=== PATIENT | male | born 1970 | race Caucasian/White ===

== ENCOUNTER 2020-03-19 08:52 | Emergency (ER) | payer BC ==
[2020-03-19 09:59] VITALS: BP 118/77
--- NOTE | 2020-03-19 10:55 | ER Document Report ---
ED Hand/Wrist Injury - General Chief Complaint: Finger Injury Stated Complaint: FINGER PAIN Time Seen by Provider: 03/19/20 10:05 Primary Care Provider: MAGO GREENFIELD PA-C [Primary Care Provider] - Follow up as needed Mode of Arrival: Ambulatory Information source: Patient Notes: 49-year-old male presents to the emergency department with a complaint of injury to the left hand. Apparently was working and picking up an item when he felt a pull in his hand. Since then he has developed significant pain in the distal palm of the left hand. He also notes that the fourth finger/ring finger has been locking over the past couple of days. He has used Aleve and applied cold packs to the area without any significant improvement. Past Medical History - Social History Smoking Status: Unknown if Ever Smoked Family History: Reviewed & Not Pertinent Physical Exam - Vital signs Vitals: Temp Pulse Resp BP Pulse Ox 98.7 F 80 16 118/77 100 03/19/20 08:58 03/19/20 08:58 03/19/20 08:58 03/19/20 08:58 03/19/20 08:58 Course - Vital Signs Vital signs: Temp Pulse Resp BP Pulse Ox 98.7 F 80 16 118/77 100 03/19/20 08:58 03/19/20 08:58 03/19/20 08:58 03/19/20 08:58 03/19/20 08:58 Discharge - Discharge Clinical Impression: Left hand tendonitis Sprain of left hand Qualifiers: Encounter type: initial encounter Qualified Code(s): S63.92XA - Sprain of u nspecified part of left wrist and hand, initial encounter Condition: Good Disposition: HOME, SELF-CARE Instructions: Tendonitis (OM) Additional Instructions: You were seen in the emergency room today with a injury to your left hand and secondary tendinitis. Please apply cold pack to the area of pain, take the medication Naprosyn as prescribed. Follow-up with your primary care doctor if your symptoms are not resolving in the next 72 hours. HOME CARE INSTRUCTIONS & INFORMATION: Thank you for choosing us for your medical needs. We hope you're satisfied with the care you received. After you leave, you must properly care for your problem and, at the same time, observe its progress. Any condition can change. Some illnesses can change rapidly over hours or days. If your condition worsens, return to the Emergency Department or see your physician promptly. ABOUT YOUR X-RAYS AND EKG'S: If you had an EKG or X-rays taken, they have been read by the Emergency Physician. The X-rays and EKG's will also be read by a Radiologist or Fashion Consultant within 24 hours. If discrepancies are noted, you will be notified by telephone. Please be certain the ED has a correct telephone number & address where you can be reached. Also, realize that some fractures or abnormalities do not show up on initial X-rays. If your symptoms continue, see your physician. ABOUT YOUR LABORATORY TEST: If you had laboratory tests, the results have been reviewed by the Emergency Physician. Some test results (for example cultures) may not be available for several days. You will be contacted if any test result shows you need additional treatment. Please be certain the ED has a correct telephone number and address where you can be reached. ABOUT YOUR MEDICATIONS: You will receive instructions on how to take your medicine on the prescription label you receive. Additional information may be provided by the Pharmacy. If you have questions afterwards, call the ED for clarification or further instructions. Some prescribed medications may cause drowsiness. Do not perform tasks such as driving a car or operating machinery without consulting your Pharmacist. If you feel you need a refill of pain medication, your condition will need re-evaluation. Please do not call for a refill of any medication. ABOUT YOUR SIGNATURE: Signature of this document acknowledges to followin. Understanding that you received emergency treatment and that you may be released before al medical problems are known or treated. Please be certain the ED has a correct phone number & address where you can be reached. 2. Acknowledgement that you will arrange for follow-up care as recommended. 3. Authorization for the Emergency Physician to provide information to your follow-up Physician in order to maximize your care. AT ANY TIME, IF YOUR SYMPTOMS CHANGE SIGNIFICANTLY OR WORSEN OR YOU DEVELOP NEW SYMPTOMS, RETURN TO THE EMERGENCY DEPARTMENT IMMEDIATELY FOR RE-EVALUATION. OUR GOAL IS TO PROVIDE EXCELLENT MEDICAL CARE! WE HOPE THAT WE HAVE MET YOUR EXPECTATIONS DURING YOUR EMERGENCY DEPARTMENT VISIT AND THAT YOU FEEL YOU HAVE RECEIVED EXCELLENT CARE! Prescriptions: Naproxen [Naprosyn] 500 mg PO BID #20 tablet Referrals: MAGO GREENFIELD PA-C [Primary Care Provider] - Follow up as needed
--- NOTE | 2020-03-19 11:46 | RADIOLOGY REPORT (SQ) ---
EXAM DESCRIPTION: HAND LEFT 3 VIEWS IMAGES COMPLETED DATE/TIME: 03/19/2020 11:26 am REASON FOR STUDY: Injury 1 week COMPARISON: None. EXAM PARAMETERS: NUMBER OF VIEWS: Three views. TECHNIQUE: AP, lateral and oblique radiographic images acquired of the left hand. LIMITATIONS: None. FINDINGS: MINERALIZATION: Normal. BONES: Well corticated bone fragment dorsal to the 3rd DIP consistent with remote trauma or anatomic variant. No acute fracture. JOINTS: No effusions. SOFT TISSUES: No soft tissue swelling. No foreign body. OTHER: No other significant finding. IMPRESSION: No acute findings. TECHNICAL DOCUMENTATION: JOB ID: [id number] 2010 [employer]- All Rights Reserved Reading location - IP/workstation name: [email or web address]
== END 2020-03-19 12:38 | disposition home or self-care (01) ==
LOC: ER 08:52
DX: S63.92XA Sprain of unspecified part of left wrist and hand, initial encounter (principal); M77.9 Enthesopathy, unspecified; M79.644 Pain in right finger(s); X58.XXXA Exposure to other specified factors, initial encounter
CPT/HCPCS: 99283

== ENCOUNTER 2020-06-07 07:51 | Day surgery (SDC) | payer OTHER, BC ==
[2020-06-02 10:42] LABS: APPEARANCE,URINE CLEAR; BILIRUBIN,URINE NEGATIVE (NEGATIVE); COLOR,URINE YELLOW; GLUCOSE, URINE NEGATIVE (NEGATIVE); KETONES,URINE NEGATIVE (NEGATIVE); LEUKOCYTE ESTERASE,URINE NEGATIVE (NEGATIVE); NITRITE,URINE NEGATIVE (NEGATIVE); PROTEIN,URINE NEGATIVE (NEGATIVE); URINE SPECIFIC GRAVITY 1.011; UROBILINOGEN,URINE NEGATIVE mg/dL (<2.0)
[2020-06-02 10:47] LABS: HEMATOCRIT 46.9 % (37.9-51.0); HEMOGLOBIN 16.2 g/dL (13.5-17.0); MEAN CORPUSCULAR HEMOGLOBIN 32.1 pg (27.0-33.4); MEAN CORPUSCULAR HGB CONC 34.6 g/dL (32.0-36.0); MEAN CORPUSCULAR VOLUME 93 fl (80-97); PLATELET COUNT 351 10^3/uL (150-450); RED BLOOD COUNT 5.05 10^6/uL (4.35-5.55); WHITE BLOOD COUNT 8.7 10^3/uL (4.0-10.5)
[2020-06-02 11:16] LABS: ANION GAP 9 (5-19); BLOOD UREA NITROGEN 13 mg/dL (7-20); CARBON DIOXIDE 29 mmol/L (22-30); CHLORIDE 101 mmol/L (98-107); GLUCOSE 117 mg/dL (75-110); POTASSIUM 4.6 mmol/L (3.6-5.0)
[~2020-06-07 07:51] MED LIST: CEFAZOLIN 2 GM/D5W RTU 2 GM/50 ML RTUPB IV PRN; FENTANYL CITRATE INJ/PF 100 MCG/2 ML AMPUL ONE; LACTATED RINGERS 1000 ML IV PRN; LIDOCAINE 0.5% INJ-PF (5 MG/ML) 50 ML SDV SUBCUT PRN; MIDAZOLAM 2 MG/2 ML INJ ONE; ONDANSETRON HCL INJ/PF 4 MG/2 ML SDV ONE; PROPOFOL INJ 200 MG/20 ML VIAL IV ONE
[2020-06-07] MEDS ORDERED: CEFAZOLIN 2 GM/D5W RTU 2 GM/50 ML RTUPB IV ONE (08:58)
[2020-06-07] MEDS ORDERED: MIDAZOLAM 2 MG/2 ML INJ ONE (11:17)
[2020-06-07] MEDS ORDERED: FENTANYL CITRATE INJ/PF 100 MCG/2 ML AMPUL ONE (11:17)
[2020-06-07] MEDS ORDERED: LIDOCAINE 1% INJ-PF (10 MG/ML) 30 ML SDV ONE (11:17)
[2020-06-07] MEDS ORDERED: LIDOCAINE 2% INJ-PF (20 MG/ML) 10 ML AMPUL ONE (11:17)
[2020-06-07] MEDS ORDERED: ONDANSETRON HCL INJ/PF 4 MG/2 ML SDV ONE (11:17)
[2020-06-07] MEDS ORDERED: PROPOFOL INJ 200 MG/20 ML VIAL IV ONE (11:18)
[2020-06-07] MEDS ORDERED: MORPHINE SULFATE 10 MG/ML INJ IV PRN ×2 (12:03→12:13)
[2020-06-07] MEDS ORDERED: FENTANYL CITRATE INJ/PF 100 MCG/2 ML AMPUL IV PRN ×3 (12:03)
[2020-06-07] MEDS ORDERED: PROMETHAZINE HCL INJ 25 MG/1 ML VIAL IV PRN ×2 (12:03)
[2020-06-07] MEDS ORDERED: DIPHENHYDRAMINE HCL 50 MG/ML VIAL IV PRN (12:03)
[2020-06-07] MEDS ORDERED: MEPERIDINE HCL/PF INJ 25 MG/1 ML DISP.SYRIN IV PRN (12:03)
[2020-06-07] MEDS ORDERED: OXYCODONE-ACETAMINOPHEN 5-325 MG TABLET PO PRN ×3 (12:03→12:13)
--- NOTE | 2020-06-07 12:13 | Operative Report ---
Operative Report DATE OF SURGERY: 06/07/20 PREOPERATIVE DIAGNOSIS: Left middle trigger finger POSTOPERATIVE DIAGNOSIS: Same OPERATION: Left middle trigger finger release SURGEON: JENNIFER PUTNAM ANESTHESIA: LMAC COMPLICATIONS: None ESTIMATED BLOOD LOSS: Minimal PROCEDURE: Indication for above procedure: 50-year-old male with catching and locking of his left middle finger. Attempted conservative measures including injections without resolution of patient's symptoms at that point decision was made to proceed with operative intervention. Procedure In Detail: Patient was seen and evaluated in the preoperative holding area. The LEFT upper extremity was initialized and marked. Patient received 2g of Ancef IV for bacterial prophylaxis. Patient was taken back to the operative room where transferred to the operative table. Once they were adequately anesthetized a nonsterile tourniquet was placed on the upper extremity. A surgical team debriefing was performed ensuring all instrumentation was available, the surgical procedure was discussed with possible concerns reviewed. A digital block was performed utilizing 10 mL of 1% lidocaine without epinephrine. The upper extremity was prepped with chlorhexidine and alcohol and draped in a sterile fashion. A timeout was done identifying correct patient, procedure and extremity everyone in attendance agree with this and verbalized no concerns. The extremity was exsanguinated the tourniquet was inflated to 250 mmHg. Longitudinal skin incision was made centered over the A1 david of the middle finger. The radial and ulnar neurovascular bundles were identified and retracted from the wound. The A1 david was identified and incised. The A1 david was released to the level of the A2 david but not through the A2 david. The palmar aponeurotic david was released proximal to the A1 david. Patient was then awoken from MAC anesthesia and made a full fresh meat grader there is no evidence of residual triggering or locking. The wound was then copiously irrigated with normal saline. Skin was closed with interrupted 4-0 nylon suture. Wound was dressed with Xeroform and a soft dressing. Sponge counts, instrument counts, needle counts counts were correct. Patient was then awoken from anesthesia. Transferred from the operating room table to the operating room stretcher. There was no intraoperative complications patient tolerated procedure well stable to PACU. Postoperative plan: Patient will follow-up as scheduled for wound check. They will call with any questions or concerns.
--- NOTE | 2020-06-07 12:13 | Discharge Summary ---
Discharge Summary (SDC) - Discharge Final Diagnosis: Left middle trigger finger Date of Surgery: 06/07/20 Discharge Date: 06/07/20 Condition: Good Treatment or Instructions: Schedule Follow Up w/ Dr. Zeke Trevizo @ [facility] for Surgery to be seen in 10-14 days or as scheduled [place]: [place]: [place]: May remove dressing on postop day #3, keep incision covered and dry. Ice and elevate May begin finger range of motion attempting to make full fist. Stool softener of choice when on pain medication. USE OF [id number] IBUPROFEN: Ibuprofen (Advil, Nuprin, Medipren, Motrin IB) is a medication for fever and pain control. In addition, it has anti- inflammatory effects which may be beneficial, especially in the treatment of injuries. It's best to take ibuprofen with food. Persons with ulcer disease or allergy to aspirin should notify their physician of this before taking ibuprofen. Ibuprofen can be given every four to six hours, for a total of four doses daily. Age Pain or fever dose Antiinflammatory dose 6-8 yr 200 mg (1 tab) 200 mg (1 tab) 9-11 yr 200 mg (1 tab) 200-400 mg (1-2 tab) 11-14 yr 200-400 mg (1-2 tab) 400 mg (2 tab) 15-adult 400 mg (2 tab) 600 mg (3 tab) ORAL NARCOTIC MEDICATION: You have been given a prescription for pain control. This medication is a narcotic. It's best taken with food, as nausea can result if taken on an empty stomach. Don't operate machinery or drive within six hours of taking this medication. Do not combine this medicine with alcohol, or with any medication which can cause sedation (such as cold tablets or sleeping pills) unless you get permission from the physician. Narcotics tend to cause constipation. If possible, drink plenty of fluids and eat a diet high in fiber and fruits. Please be aware that prescription narcotics also have the potential for abuse. People become addicted to these medications because of the general sense of wellbeing that they induce. This feeling along with a significant reduction in tension, anxiety, and aggression provides a stimulating seductive quality to these drugs. Once your pain is under control, we encourage you to discard your unused narcotics. Prescriptions: Hydrocodone/Acetaminophen [[place] 5-325 mg Tablet] 1 tab PO Q6 PRN #12 tablet PRN Reason: Referrals: MAGO GREENFIELD PA-C [Primary Care Provider] - Discharge Diet: As Tolerated Respiratory Treatments at Home: Deep Breathing/Coughing Discharge Activity: No Lifting Over 10 Pounds, No Lifting/Push/Pulling Report the Following to Your Physician Immediately: Fever over 101 Degrees, Unusual Bleeding, Redness, Swelling, Warmth, Increased Soreness
[2020-06-07 13:53] VITALS: BP 118/79
== END 2020-06-07 13:10 | disposition home or self-care (01) ==
LOC: OROUT 07:51
PROVIDERS: ATTEND Orthopaedic Surgery
DX: M65.332 Trigger finger, left middle finger (principal); I10 Essential (primary) hypertension; E11.9 Type 2 diabetes mellitus without complications; E78.5 Hyperlipidemia, unspecified; F17.210 Nicotine dependence, cigarettes, uncomplicated; Z03.818 Encounter for observation for suspected exposure to other biological agents ruled out; Z79.84 Long term (current) use of oral hypoglycemic drugs; Z79.899 Other long term (current) drug therapy; Z85.07 Personal history of malignant neoplasm of pancreas
CPT/HCPCS: 36415; 82962; 85027; 87635; 80048; 81001; 83036; 01810; 26055; J2250; J3010; J3490 ×2; J2405; J2704; J0690; C9803; 1810